=== PATIENT | male | born 1980 | race Caucasian/White ===

== ENCOUNTER 2020-07-11 19:17 | Emergency (ER) | payer SELFPAY ==
[2020-07-11] MEDS ORDERED: Ibuprofen 800 MG TAB ONE (20:07)
[2020-07-11] MEDS ORDERED: traMADol HCl 50 MG TAB ONE (20:07)
== END 2020-07-11 20:10 | disposition home or self-care (01) ==
LOC: BURERS 19:17
DX: S06.0X0A Concussion without loss of consciousness, initial encounter (principal); S01.01XA Laceration without foreign body of scalp, initial encounter; W20.8XXA Other cause of strike by thrown, projected or falling object, initial encounter
CPT/HCPCS: 12002; 70450